=== PATIENT | male | born 1950 | race Caucasian/White ===

== ENCOUNTER 2018-12-30 08:15 | Day surgery (SDC) | payer OTHER ==
[~2018-12-30] VITALS: Ht 167.6 cm; Wt 87.8 kg
[~2018-12-30 08:15] MED LIST: CLOBET30L TOP; DIAPER RASH OIN56 GM TOP; HYDROCORT-PRAMO30 GM TOP; SIMV10 PO; ZESTORETIC 20-1 EAC1 PO; ZESTORETIC 20-121 EA PO; [UNRECOGNIZED DRUG - OTHER] TOP
--- NOTE | 2018-12-30 09:37 | NUR ---
12/30/18 0937 Trish Park DISCUSSED GENERAL DC INSTRUCTIONS W/PT AND . QUESTIONS ANSWERED. PT RESTING IN BED, BED IN LOWEST POSITION, AND CALL LIGHT IN REACH.
[2018-12-30 09:57] LABS: Hematocrit 36.3 % (37.0-53.0); Hemoglobin 11.7 g/dL (13.5-17.5); Mean Corpuscular HGB 24.4 pg (26.0-34.0); Mean Corpuscular HGB Conc 32.2 g/dL (31.5-36.5); Mean Corpuscular Volume 76 fL (80-100); Mean Platelet Volume 9.3 fL (9.1-12.4); Platelet Count 360 K/mm3 (150-400); RDW Coefficient Variation 14.8 % (11.7-14.2); RDW Standard Deviation 40.6 fL (35.1-46.3)
--- NOTE | 2018-12-30 11:44 | NUR ---
12/30/18 1144 Laina More IMAGING ARRIVES TO TAKE CXR.
== END 2018-12-30 12:35 | disposition home or self-care (01) ==
LOC: ORSCSDS 08:15 → ORSCMMR 11:30 → ORSCSDS 12:35
PROVIDERS: Surgery
PROC: B5131ZA Fluoroscopy of Right Jugular Veins using Low Osmolar Contrast, Guidance (ICD-10-PCS; principal; 2018-12-30 10:45)
PROC: 05HM33Z Insertion of Infusion Device into Right Internal Jugular Vein, Percutaneous Approach (ICD-10-PCS; principal; 2018-12-30 10:45)
DX: C20 Malignant neoplasm of rectum (principal); I10 Essential (primary) hypertension; J44.9 Chronic obstructive pulmonary disease, unspecified; Z87.891 Personal history of nicotine dependence; E78.00 Pure hypercholesterolemia, unspecified; E66.9 Obesity, unspecified; Z68.31 Body mass index [BMI] 31.0-31.9, adult; Z79.899 Other long term (current) drug therapy
CPT/HCPCS: 77001; 85027; C1788; J0690; J1642; J2250; J2370; J3010